=== PATIENT | male | born 1990 | race African-American/Black ===

== ENCOUNTER 2025-03-17 18:28 | Emergency (ER) | payer OTHER ==
[2025-03-17 19:44] LABS: Glucose, Urine (Dipstick) Negative (Negative); Leukocyte Trace (Negative); Protein, Urine (Dipstick) Trace mg/dL (Neg-Trace); Specific Gravity, Urine 1.015 (1.005-1.030)
[2025-03-17 19:58] LABS: Bacteria/HPF 1+ HPF (None Seen); CAUTI Indications for Culture Dysuria,urgency,freq; RBC/HPF 0-3 HPF (0-3)
[2025-03-17 20:00] LABS: Urine Culture Reflex No No
[2025-03-19 01:25] LABS: Chlam.trachomatis by PCR,Urine Not Detected (NotDetected); GC N.gonorrhoeae PCR,UrineVOID Not Detected (NotDetected)
== END 2025-03-17 20:28 | disposition short-term general hospital (02) ==
LOC: NAV ERS 18:28
DX: N50.811 Right testicular pain (principal); A56.8 Sexually transmitted chlamydial infection of other sites; F17.290 Nicotine dependence, other tobacco product, uncomplicated
CPT/HCPCS: 81001; 87491; 87591; 99285

== ENCOUNTER 2025-03-22 17:04 | Emergency (ER) | payer OTHER ==
[2025-03-22 18:08] LABS: Glucose, Urine (Dipstick) Negative (Negative); Leukocyte Negative (Negative); Protein, Urine (Dipstick) Negative (Neg-Trace); Specific Gravity, Urine 1.015 (1.005-1.030)
[2025-03-22 18:16] LABS: CAUTI Indications for Culture Pelvic or flank pain; WBC/HPF 0-3 HPF (0-3)
[2025-03-22 18:17] LABS: Urine Culture Reflex No No
== END 2025-03-22 18:31 | disposition short-term general hospital (02) ==
LOC: NAV ERS 17:04
DX: N45.1 Epididymitis (principal); N50.811 Right testicular pain; I10 Essential (primary) hypertension; F17.290 Nicotine dependence, other tobacco product, uncomplicated
CPT/HCPCS: 81001; 99284